=== PATIENT | female | born 1985 | race Caucasian/White ===

== ENCOUNTER 2018-01-12 08:15 | Emergency (ER) | payer MEDICAID ==
[2018-01-12] MEDS ORDERED: Amoxicillin/Clavulanate K 875-125 MG Tab PO ONE (08:31)
[2018-01-12] MEDS ORDERED: Diphtheria,Pertussis(Acell),Tetanus Vaccine 0.5 ML SDV IM ONE (08:37)
[2018-01-12] MEDS ORDERED: Acetaminophen 325 MG Tab PO ONE (08:45)
[2018-01-12] MEDS ORDERED: Acetaminophen/HYDROcodone 325-5 MG Tab PO ONE (08:46)
--- NOTE | 2018-01-12 08:52 | EDM.PDOC ---
ED HPI GENERAL MEDICAL PROBLEM - General Chief Complaint: Bite:Animal, Insect Stated Complaint: [facility] Time Seen by Provider: 01/12/18 08:26 Source of Information: Reports: Patient History Limitations: Reports: No Limitations - History of Present Illness INITIAL COMMENTS - FREE TEXT/NARRATIVE: 32 y/o F with bilateral arm wounds after being bit by her own dog. She was walking her dog when another dog started fighting with her dog. She was trying to break up the fight and was bit by her dog. Complains of wounds to both forearms. +Moderate pain/swelling. Mild bleeding. Feels like she has numbness right around the wounds. No hand weakness. Took ibuprofen already this morning for chronic back pain. Her dog is fully vaccinated and has been behaving normally. Bilateral Wrist Pain Score (Numeric/FACES): 8 - Related Data Allergies Allergy/AdvReac Type Severity Reaction Status Date / Time morphine Allergy Airway Verified 01/12/18 08:22 Tightness Home Meds: Home Meds Hydrocodone/Acetaminophen [Hydrocodon-Acetaminophen 5-325] 1 each PO QID PRN # 10 tablet 01/12/18 [Rx] Past Medical History - Past Health History Medical/Surgical History: Denies Medical/Surgical History Psychiatric History: Reports: Depression Social & Family History - Tobacco Use Smoking Status *Q: Current Every Day Smoker Years of Tobacco use: 10 Packs/Tins Daily: 0.3 - Recreational Drug Use Recreational Drug Use: No ED ROS GENERAL - Review of Systems Review Of Systems: See Below Constitutional: Reports: No Symptoms Respiratory: Reports: No Symptoms Cardiovascular: Reports: No Symptoms GI/Abdominal: Reports: No Symptoms Musculoskeletal: Reports: Arm Pain Skin: Reports: Wound Neurological: Reports: Paresthesia Hematologic/Lymphatic: Reports: No Symptoms ED EXAM, ANIMAL BITE - Physical Exam Exam: See Below Exam Limited By: No Limitations General Appearance: Alert, WD/WN, No Apparent Distress Eye Exam: Bilateral Eye: Normal Inspection Ears: Normal External Exam Nose: Normal Inspection Throat/Mouth: Normal Inspection, Normal Voice Head: Atraumatic, Normocephalic Neck: Normal Inspection, Supple Respiratory/Chest: No Respiratory Distress Cardiovascular: Normal Peripheral Pulses Peripheral Pulses: 1+: Radial (L), Radial (R) Extremities: Other (RUE: dorsal surface of wrist area has two isolated puncture wounds, no bleeding, mild soft tissue swelling adn TTP, no visible FB, full ROM of the wrist, distal motor/sensation/perfusion intact. LUE: 2 cm linear laceration on the dorsal surface of the wrist, subcutanous, mild bleeding, no FB. 1 cm laceration on volar surface of mid wrist area, linear, subcutanous, no FB. Distal motor/sensation/perfusion intact. ) Neurological: Alert, Oriented, Normal Cognition Psychiatric: Normal Affect, Normal Mood Skin Exam: Warm/Dry, DRY, I, Normal Color, NR Course - Vital Signs Last Recorded V/S: Last Vital Signs Temp 36.8 C 01/12/18 08:22 Pulse 95 01/12/18 08:22 Resp 18 01/12/18 08:22 BP 137/100 H 01/12/18 08:22 Pulse Ox 99 01/12/18 08:22 - Orders/Labs/Meds Orders: Active Orders 24 hr Category Date Time Status Vaccines to be Administered [RC] PER UNIT ROUTINE Care 01/12/18 08:37 Active Wrist Comp Min 3V Rt [CR] Stat Exams 01/12/18 08:46 Taken Meds: Medications Discontinued Medications Generic Name Dose Route Start Last Admin Trade Name Tonio PRN Reason Stop Dose Admin Acetaminophen 925 mg 01/12/18 08:45 Tylenol PO 01/12/18 08:46 NOW ONE Hydrocodone Bitart/Acetaminophen 1 tab 01/12/18 08:46 01/12/18 09:00 [place] 325-5 Mg PO 01/12/18 08:47 1 tab ONETIME ONE Administration Amoxicillin/Clavulanate Potassium 1 tab 01/12/18 08:31 01/12/18 09:00 Augmentin 875 Mg/125 Mg PO 01/12/18 08:32 1 tab ONETIME ONE Administration Diphtheria/Tetanus/Acell Pertussis 0.5 ml 01/12/18 08:37 01/12/18 09:01 Adacel IM 01/12/18 08:38 0.5 ml .ONCE ONE Administration - Re-Assessments/Exams Free Text/Narrative Re-Assessment/Exam: 01/12/18 10:30 Wounds thoroughly irrigated in the ED. No visible FB's. L dorsal wrist wound closed with steri-strips. Remaining puncture wounds left open. Applied bacitracin and dressings. Gave dose of Augmentin here and prescribed x 5 days ( paper prescription as dc materials printed before I'd created the rx). Also prescribed small supply of pain meds. Discussed return precautions. She will observe her dog at home. Departure - Departure Time of Disposition: 08:48 Disposition: Home, Self-Care 01 Clinical Impression: Dog bite Qualifiers: Encounter type: initial encounter Qualified Code(s): W54.0XXA - Bitten by dog, initial encounter Laceration of wrist Qualifiers: Encounter type: initial encounter Laterality: left Qualified Code(s): S61.512A - Laceration without foreign body of left wrist, initial encounter - Discharge Information Prescriptions: Hydrocodone/Acetaminophen [Hydrocodon-Acetaminophen 5-325] 1 each PO QID PRN # 10 tablet PRN Reason: Pain Instructions: Animal Bite, [id number], Laceration Care, Adult Referrals: PCP,Not In Area [Primary Care Provider] - Forms: ED Department Discharge Additional Instructions: 1. Keep wound clean and dry. Wash daily with gentle soap and water. After washing, dry wounds and apply antibiotic ointment and cover wounds. 2. Take ibuprofen for pain. Take hydrocodone for severe pain. No driving/ working while taking hydrocodone as it could make you sleepy or confused. 3. Ice wounds today and tomorrow. 4. Return to the ED for any signs of infection, such as worsening pain, swelling , redness, or pus under the wounds. 5. You can follow up with walk in clinic for a wound check on Sunday or Sunday. Call [phone] to schedule. 6. Observe your dog. If your dog starts acting crazy or has unusual behavior consult animal control and return to the ED for the rabies immunoglobin treatment. - My Orders Last 24 Hours: My Active Orders 01/12/18 08:37 Vaccines to be Administered [RC] PER UNIT ROUTINE 01/12/18 08:46 Wrist Comp Min 3V Rt [CR] Stat - Assessment/Plan Last 24 Hours: My Active Orders 01/12/18 08:37 Vaccines to be Administered [RC] PER UNIT ROUTINE 01/12/18 08:46 Wrist Comp Min 3V Rt [CR] Stat
--- NOTE | 2018-01-15 15:42 | CR ---
Right wrist: Four views of the right wrist were obtained. Soft tissue swelling is seen within the distal forearm. Soft tissue air is also noted within the posterior forearm. No fracture, dislocation or other bony abnormality is seen. Impression: 1. Soft tissue swelling and soft tissue air. 2. No acute bony abnormality is identified. Diagnostic code #3
== END 2018-01-12 09:32 | disposition home or self-care (01) ==
LOC: JD.ED 08:15
DX: S61.512A Laceration without foreign body of left wrist, initial encounter (principal); F17.210 Nicotine dependence, cigarettes, uncomplicated; Z88.5 Allergy status to narcotic agent; Z23 Encounter for immunization; W54.0XXA Bitten by dog, initial encounter
CPT/HCPCS: 73110; 90471; 90715; 99284; A9270; 99283

== ENCOUNTER 2019-09-18 16:54 | Emergency (ER) | payer BC, MEDICAID ==
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
== END 2019-09-18 17:52 | disposition home or self-care (01) ==
LOC: JD.ED 16:54
DX: S83.91XA Sprain of unspecified site of right knee, initial encounter (principal); F32.9 Major depressive disorder, single episode, unspecified; Z88.5 Allergy status to narcotic agent; Z79.899 Other long term (current) drug therapy; W22.8XXA Striking against or struck by other objects, initial encounter
CPT/HCPCS: 99282; 99283

== ENCOUNTER 2019-10-08 16:50 | Emergency (ER) | payer BC ==
[2019-10-08] MEDS ORDERED: Loratadine 10 MG Tab PO ONE (17:43)
[2019-10-08] MEDS ORDERED: EPINEPHrine 1 MG/ML SDV IM ONE ×2 (17:43→19:11)
[2019-10-08] MEDS ORDERED: predniSONE 20 MG Tab PO ONE (17:43)
[2019-10-08] MEDS ORDERED: Famotidine 20 MG Tab PO ONE (17:43)
--- NOTE | 2019-10-08 18:20 | EDM.PDOC ---
<Romel Aguilar Heber - Last Filed: 10/08/19 18:14> ED HPI GENERAL MEDICAL PROBLEM - General Chief Complaint: Allergic Reaction Stated Complaint: ALLERGIC RX Time Seen by Provider: 10/08/19 17:18 Source of Information: Reports: Patient History Limitations: Reports: No Limitations - History of Present Illness INITIAL COMMENTS - FREE TEXT/NARRATIVE: Betzy Perry is a pleasant 33 y/o female in the ED today for a full body hives she woke up with this morning. Betzy states that due to her medical history of RA she was started on Celebrex on either September [address] Jimenez. She reported back to Dr. Jimenez that it was not helping her RA so he had her stop the Celebrex after 5 days, start a 6 day course of prednisone, and then this Sunday (10/05/2019) to stop the prednisone and restart the Celebrex that night. She reports that she then went to bed on Sunday night after taking her Celebrex and felt completely fine, but when she woke up this Sunday morning she was completely covered in hives, head to toe. She reports that the hives do not burn but they are very pruritic. Her only other complaint beyond the hives is that she feels like she is having a difficult time with expiration, but does not feel SOB or notice herself wheezing at all. She denies any drainage or weeping from the hives. She denies any fever, chest pain, chest palpitations, or overall pain (Just itchy). She denies feeling too anxious or nervous as she feels this is from starting the Celebrex since she has taken prednisone in the past and no issues have occurred. She denies any changes in diet or trying new foods, she denies any environmental or outdoor exposure to something that may have caused a rash, she denies using any new soaps, perfumes, lotions, etc. 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: Psychiatric History: Reports: Depression - Past Surgical History Musculoskeletal Surgical History: Reports: Arthroscopic Knee Other Musculoskeletal Surgeries/Procedures:: bilateral 2007 Social & Family History - Tobacco Use Smoking Status *Q: Never Smoker Second Hand Smoke Exposure: No - Caffeine Use Caffeine Use: Reports: None - Recreational Drug Use Recreational Drug Use: No ED ROS ALLERGIC REACTION - Review of Systems Review Of Systems: See Below Constitutional: Reports: No Symptoms HEENT: Reports: No Symptoms Respiratory: Reports: Other (feels she is straining to breath with expiration ) . Denies: Shortness of Breath, Wheezing, Pleuritic Chest Pain, Cough Cardiovascular: Reports: No Symptoms Endocrine: Reports: No Symptoms GI/Abdominal: Reports: No Symptoms : Reports: No Symptoms Musculoskeletal: Reports: No Symptoms Skin: Reports: Other (see HPI) Neurological: Reports: No Symptoms. Denies: Numbness, Paresthesia, Tingling, Difficulty Walking Psychiatric: Reports: No Symptoms Hematologic/Lymphatic: Reports: No Symptoms Immunologic: Reports: Other (Drug allergy to morphine, and possible allergy to celebrex). Denies: Anaphylaxis, Food Allergy, Environmental Allergy, Seasonal Allergy, Grass Allergy, Mold Allergy, Pollen Allergy ED EXAM GENERAL NO PERIP PULSE - Physical Exam Exam: See Below General Appearance: Alert, WD/WN, No Apparent Distress Nose: Normal Inspection, Normal Mucosa, No Blood Throat/Mouth: Normal Inspection, Normal Lips, Normal Teeth, Normal Gums, Normal Oropharynx, Normal Voice, No Airway Compromise Head: Atraumatic, Normocephalic, Other (Hives stop right before jaw line and spare the face). No: Facial Swelling, Facial Tenderness, Sinus Tenderness Respiratory/Chest: No Respiratory Distress, Lungs Clear, Normal Breath Sounds, No Accessory Muscle Use, Chest Non-Tender. No: Respiratory Distress, Decreased Breath Sounds, Crackles, Rales, Rhonchi, Wheezing, Accessory Muscle Use Cardiovascular: Normal Peripheral Pulses, Regular Rate, Rhythm, No Edema, No Gallop, No JVD, No Murmur, No Rub Back Exam: Normal Inspection, Other (Hives on back as well) Extremities: Normal Inspection, Normal Range of Motion, Non-Tender Neurological: Alert, Oriented, Normal Cognition, Normal Gait, Normal Reflexes, No Motor/Sensory Deficits Psychiatric: Normal Affect, Normal Mood Skin Exam: Warm, Dry, Intact, Rash (See HPI and diagram ). No: Normal Color, No Rash Lymphatic: No Adenopathy Front/Back Body Diagram: 1 - Covers entire torso, but spares palms and face 2 - covers entire lower body and privates but spares soles of feet 3 - Covers all of posterior body Course - Vital Signs Last Recorded V/S: Last Vital Signs Temp 97.6 F 10/08/19 17:03 Pulse 109 H 10/08/19 20:15 Resp 20 10/08/19 20:15 BP 135/96 H 10/08/19 17:03 Pulse Ox 95 10/08/19 20:15 - Orders/Labs/Meds Meds: Medications Discontinued Medications Generic Name Dose Route Start Last Admin Trade Name Tonio PRN Reason Stop Dose Admin Epinephrine HCl 0.3 mg 10/08/19 17:43 10/08/19 18:14 Adrenalin IM 10/08/19 17:44 0.3 mg ONETIME ONE Administration Epinephrine HCl 0.3 mg 10/08/19 19:11 10/08/19 19:21 Adrenalin IM 10/08/19 19:12 0.3 mg ONETIME ONE Administration Famotidine 20 mg 10/08/19 17:43 10/08/19 18:14 Pepcid PO 10/08/19 17:44 20 mg ONETIME ONE Administration Loratadine 10 mg 10/08/19 17:43 10/08/19 18:14 Claritin PO 10/08/19 17:44 10 mg ONETIME ONE Administration Prednisone 60 mg 10/08/19 17:43 10/08/19 18:14 Prednisone PO 10/08/19 17:44 60 mg ONETIME ONE Administration Departure - Departure Disposition: Home, Self-Care 01 Clinical Impression: Allergic urticaria - Discharge Information Prescriptions: predniSONE [Prednisone] 50 mg PO DAILY #5 tablet Instructions: Hives, [id number] Referrals: Gietzen,Gay, AVIONICS TECHNICIAN [Primary Care Provider] - Forms: ED Department Discharge Additional Instructions: You are most likely having allergic reaction to the celebrex that you have been taking off and on recently. Do not take any further celebrex. Continue benadryl 500 mg q 6 to 8 hr or claritin 10 mg daily as discussed until hives and itching are completely gone. You have been given your dose of prednisone for this evening. Continue prednisone 50 mg every morning for the next 5 days. Prescription has been sent electronically to [facility] at the [facility]. Follow-up with your regular medical provider if not better by Sunday although this may take 3 to 5 days for the hives, rash and itching to completely go away and stay away. Return to ED as needed and especially if symptoms worsening in any way. Sepsis Event Note - Evaluation Sepsis Screening Result: No Definite Risk - Focused Exam Date Exam was Performed: 10/08/19 Time Exam was Performed: 18:14 <Ed Hollis - Last Filed: 10/10/19 16:18> Course - Re-Assessments/Exams Free Text/Narrative Re-Assessment/Exam: 10/10/19 16:15 Initial hx and exam was done by CONRAD Padilla student. I agree with his hx and exam as documented. I have also examined and interviewed patient. We treated her with 60 mg prednisone oral, epi 0.3 ml IM times 2, claritin 10 mg PO, pepcid 20 mg PO. 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 Her condition did not change much after initial rx, less itchy at time of discharge. No airway or breathing issues. Discharge instr. as documented. Departure - Departure Time of Disposition: 19:39 Condition: Fair Sepsis Event Note - Focused Exam Date Exam was Performed: 10/10/19 Time Exam was Performed: 16:15
== END 2019-10-08 20:30 | disposition home or self-care (01) ==
LOC: JD.ED 16:50
DX: L50.0 Allergic urticaria (principal); F32.9 Major depressive disorder, single episode, unspecified; Z79.899 Other long term (current) drug therapy; Z88.5 Allergy status to narcotic agent
CPT/HCPCS: 96372; 99282; A9270; J0171; 99283

== ENCOUNTER 2019-10-11 08:35 | Emergency (ER) | payer BC ==
--- NOTE | 2019-10-11 08:53 | EDM.PDOC ---
ED HPI GENERAL MEDICAL PROBLEM - General Chief Complaint: Skin Complaint Stated Complaint: SKIN COMPLAINT/ALLERGIC REACTION Time Seen by Provider: 10/11/19 08:53 Source of Information: Reports: Patient, RN Notes Reviewed - History of Present Illness INITIAL COMMENTS - FREE TEXT/NARRATIVE: 33-year-old female had onset of rash and hives 3 days ago. Evaluated in the ED later that afternoon/early evening by myself. That time she did have diffuse hives likely due to to a recent brief course of Celebrex prior course of Celebrex a week or 2 prior. Has been taking Benadryl and has been on prednisone. The hives that she had 3 days ago are gone but now she does have a diffuse erythematous fine rash entire body. She has not been sick in any way. She denies sore throat. She has had no throat or facial swelling, no difficulty breathing. No fever or chills. 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 (see below) Other Treatments RETAIL LINK ANALYST: claratin, 50mg prednisone, 50 mg benadryl - Related Data Allergies Allergy/AdvReac Type Severity Reaction Status Date / Time morphine Allergy Airway Verified 10/11/19 08:50 Tightness Home Meds: Home Meds Sertraline [Zoloft] 50 mg PO BEDTIME 09/18/19 [History] traMADol HCl [Tramadol HCl] 50 mg PO Q6H PRN 09/18/19 [History] predniSONE [Prednisone] 50 mg PO DAILY #5 tablet 10/08/19 [Rx] Loratadine [Claritin] 10 mg PO 10/11/19 [History] diphenhydrAMINE [Benadryl] 50 mg PO BID PRN 10/11/19 [History] Past Medical History - Past Health History Medical/Surgical History: Denies 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: Psychiatric History: Reports: Depression - Past Surgical History Musculoskeletal Surgical History: Reports: Arthroscopic Knee Other Musculoskeletal Surgeries/Procedures:: bilateral 2008 Social & Family History - Caffeine Use Caffeine Use: Reports: None ED ROS GENERAL - Review of Systems Review Of Systems: See Below Constitutional: Denies: Fever, Chills, Diaphoresis HEENT: Denies: Throat Pain Respiratory: Denies: Shortness of Breath Cardiovascular: Denies: Chest Pain GI/Abdominal: Denies: Abdominal Pain, Nausea, Vomiting Musculoskeletal: Reports: No Symptoms Skin: Reports: Pruritis, Rash Neurological: Reports: No Symptoms ED EXAM, SKIN/RASH Exam: See Below General Appearance: Alert, Mild Distress Eye Exam: Bilateral Eye: PERRL Throat/Mouth: Normal Inspection, Normal Oropharynx Head: Atraumatic. No: Facial Swelling Neck: Supple Respiratory/Chest: No Respiratory Distress, Lungs Clear, Normal Breath Sounds Cardiovascular: Regular Rate, Rhythm Extremities: Normal Inspection, Normal Range of Motion Neurological: Alert, Oriented, No Motor/Sensory Deficits Skin: Warm, Dry, Erythema (Lysed erythema of face neck trunk upper and lower extremities with sparing of her hands.) Course - Vital Signs Last Recorded V/S: Last Vital Signs Temp 98.0 F 10/11/19 08:45 Pulse 72 10/11/19 08:45 Resp 16 10/11/19 08:45 BP 128/94 H 10/11/19 08:45 Pulse Ox 99 10/11/19 08:45 - Orders/Labs/Meds Labs: Laboratory Tests 10/11/19 10/11/19 10/11/19 Range/Units 09:15 09:15 09:15 WBC 7.05 (3.98-10.04) K/mm3 RBC 4.78 (3.98-5.22) M/mm3 Hgb 13.8 (11.2-15.7) gm/dl Hct 42.2 (34.1-44.9) % MCV 88.3 (79.4-94.8) fl MCH 28.9 (25.6-32.2) pg MCHC 32.7 (32.2-35.5) g/dl RDW Std Deviation 47.5 H (36.4-46.3) fL Plt Count 363 (182-369) K/mm3 MPV 10.0 (9.4-12.3) fl Neut % (Auto) 71.3 H (34.0-71.1) % Lymph % (Auto) 17.0 L (19.3-51.7) % [place] % (Auto) 4.4 L (4.7-12.5) % Eos % (Auto) 7.1 H (0.7-5.8) Baso % (Auto) 0.1 (0.1-1.2) % Neut # (Auto) 5.02 (1.56-6.13) K/mm3 Lymph # (Auto) 1.20 (1.18-3.74) K/mm3 [place] # (Auto) 0.31 (0.24-0.36) K/mm3 Eos # (Auto) 0.50 H (0.04-0.36) K/mm3 Baso # (Auto) 0.01 (0.01-0.08) K/mm3 ESR 22 H (0-20) mm/hr Sodium 143 (136-145) mEq/L Potassium 4.3 (3.5-5.1) mEq/L Chloride 108 H (98-107) mEq/L Carbon Dioxide 28 (21-32) mEq/L Anion Gap 11.3 (5-15) BUN 26 H (7-18) mg/dL Creatinine 1.1 H (0.55-1.02) mg/dL Est Cr Clr Drug Dosing 58.61 mL/min Estimated GFR (MDRD) 58 (>60) mL/min BUN/Creatinine Ratio 23.6 H (14-18) Glucose 88 (74-106) mg/dL Calcium 8.3 L (8.5-10.1) mg/dL Total Bilirubin 0.3 (0.2-1.0) mg/dL AST 15 (15-37) U/L ALT 30 (14-59) U/L Alkaline Phosphatase 95 (46-116) U/L Total Protein 6.6 (6.4-8.2) g/dl Albumin 3.1 L (3.4-5.0) g/dl Globulin 3.5 gm/dL Albumin/Globulin Ratio 0.9 L (1-2) Meds: Medications Discontinued Medications Generic Name Dose Route Start Last Admin Trade Name Freq PRN Reason Stop Dose Admin Epinephrine HCl 0.3 mg 10/11/19 09:03 10/11/19 09:28 Adrenalin IM 10/11/19 09:04 0.3 mg ONETIME ONE Administration - Re-Assessments/Exams Free Text/Narrative Re-Assessment/Exam: 10/11/19 19:08 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 I did go ahead and give her a dose of 0.3 ml epi IM which may have faded the rash out slightly but did not make a significant difference. I have explained to the patient that this is going to likely take several more days, possibly more for this to clear out. I have written an extension of the prednisone for her to take another 5 days beyond the original day prescription. Have also advised that she follow-up with her regular provider early next week for recheck. She is to return to the ED if symptoms worsening in any way. Departure - Departure Time of Disposition: 10:34 Disposition: Home, Self-Care 01 Condition: Fair Clinical Impression: Allergic drug rash - Discharge Information Instructions: Drug Rash Referrals: Gay Martin NP [Primary Care Provider] - Forms: ED Department Discharge Additional Instructions: Continue to avoid celebrex. Continue prednisone 50 mg daily and after using that go to prednisone 40 mg daily for another 5 days. continue benadryl and claritin. Pepcid (OTC famotidine) 20 mg twice daily. See your regular medical provider in about 4 to 5 days, call for appt. Return to ED as needed if symptoms worsening in any way. Sepsis Event Note - Evaluation Sepsis Screening Result: No Definite Risk - Focused Exam Vital Signs: Vital Signs Temp Pulse Resp BP Pulse Ox 10/11/19 08:45 98.0 F 72 16 128/94 H 99 Date Exam was Performed: 10/11/19 Time Exam was Performed: 19:06
[2019-10-11] MEDS ORDERED: EPINEPHrine 1 MG/ML SDV IM ONE (09:03)
== END 2019-10-11 10:56 | disposition home or self-care (01) ==
LOC: JD.ED 08:35
DX: L23.3 Allergic contact dermatitis due to drugs in contact with skin (principal); T39.395A Adverse effect of other nonsteroidal anti-inflammatory drugs [NSAID], initial encounter; F32.9 Major depressive disorder, single episode, unspecified; Z88.5 Allergy status to narcotic agent; Z79.899 Other long term (current) drug therapy
CPT/HCPCS: 36415; 80053; 85025; 85652; 96372; 99283; J0171